=== PATIENT | female | born 1995 | race Caucasian/White ===

== ENCOUNTER 2020-05-04 20:49 | Emergency (ER) | payer OTHER ==
[~2020-05-04] VITALS: Ht 157.5 cm; Wt 56.2 kg
[2020-05-04 21:06] VITALS: Ht 157.5 cm; Wt 56.2 kg
[2020-05-04] MEDS ORDERED: ANTIBIOTIC O500 U/GM TOP ×2 (23:09→23:29)
[2020-05-04 23:36] VITALS: BP 118/76
== END 2020-05-04 23:36 | disposition home or self-care (01) ==
LOC: ED 20:49
DX: S80.212A Abrasion, left knee, initial encounter (principal); S80.211A Abrasion, right knee, initial encounter; W17.89XA Other fall from one level to another, initial encounter; Y93.89 Activity, other specified; Y92.89 Other specified places as the place of occurrence of the external cause; Y99.8 Other external cause status